=== PATIENT | female | born 1965 | race Caucasian/White ===

== ENCOUNTER 2022-03-15 09:22 | Day surgery (SDC) | payer BC ==
[2022-03-10 13:53] VITALS: BMI 34.9
[2022-03-15 09:45] VITALS: RESP 16
[2022-03-15] MEDS ORDERED: PROPOFOL 120 ML ONE (10:12)
[2022-03-15 11:19] VITALS: BP 143/71; PULSE 62; TEMP 97.9
== END 2022-03-15 11:10 | disposition home or self-care (01) ==
LOC: FASU-ENDO 09:22
PROVIDERS: ATTEND Internal Medicine Gastroenterology
PROC: 0DBH8ZX Excision of Cecum, Via Natural or Artificial Opening Endoscopic, Diagnostic (ICD-10-PCS; principal; 2022-03-15 10:05)
DX: Z12.11 Encounter for screening for malignant neoplasm of colon (principal); K63.89 Other specified diseases of intestine
CPT/HCPCS: 88305-TC